=== PATIENT | male | born 1975 | race Caucasian/White ===

== ENCOUNTER 2020-11-24 06:18 | Emergency (ER) | payer OTHER ==
[2020-11-24 06:44] VITALS: BP 109/68; PULSE 92; BMI 23.6
[2020-11-24] MEDS ORDERED: ACETAMINOPHEN 325 MG TABLET (FP) PO ONE (07:37)
[2020-11-24 08:38] LABS: BASO % 0.7 % (0-2.0); HEMATOCRIT 44.5 % (35.4-49); HEMOGLOBIN 14.5 GM/dL (11.7-16.9); LYMPH % 31.3 % (8-40); MCH 27.9 pg (25.7-33.7); MCHC 32.7 g/dl (32.0-35.9); MEAN CELL VOLUME 85.5 fl (80-96); MEAN PLT VOLUME 8.9 fl (7.5-11.1); MONO % 10.5 % (3.8-10.2); NEUT % 57.5 % (42.8-82.8); PLATELET COUNT 168 K/MM3 (134-434); RDW 13.2 % (11.9-15.9); WHITE BLOOD COUNT 4.8 K/mm3 (4.0-10.0)
[2020-11-24 08:55] LABS: POTASSIUM 4.4 mmol/L (3.5-5.1)
[2020-11-24 08:58] LABS: ALBUMIN 3.7 g/dl (3.4-5.0); BLOOD UREA NITROGEN 11.6 mg/dL (7-18); CALCIUM 8.4 mg/dL (8.5-10.1)
[2020-11-24 09:01] LABS: CREATININE 1.1 mg/dL (0.55-1.3)
[2020-11-24 09:02] LABS: BILIRUBIN,TOTAL 0.2 mg/dL (0.2-1); TOT PROT 7.3 g/dl (6.4-8.2)
[2020-11-24 10:09] VITALS: TEMP 98.9
== END 2020-11-24 10:09 | disposition home or self-care (01) ==
LOC: JER 06:18
DX: J06.9 Acute upper respiratory infection, unspecified (principal)
CPT/HCPCS: 36415; 71046-TC-FY; 80053; 85025; 99283-25; C9803; U0003